=== PATIENT | male | born 1995 | race Two or more races ===

== ENCOUNTER 2020-01-24 15:30 | Emergency (ER) | payer OTHER ==
[~2020-01-24] VITALS: Ht 167.6 cm; Wt 78.0 kg
[2020-01-24 16:10] VITALS: BP 132/71
[2020-01-24 16:18] LABS: Eosinophils # (auto) 0.3 10 ^3/uL (0-0.8); Lymphocytes # (auto) 2.7 10 ^3/uL (0.4-5.4); Monocytes # (auto) 0.6 10 ^3/uL (0-1.3); Neutrophils # (auto) 5.1 10 ^3/uL (1.6-8.6); Nucleated Red Blood Cells % 0.1 %
[2020-01-24 16:20] LABS: Basophils # (auto) 0.1 10 ^3/uL (0-0.2); Basophils % (auto) 0.6 % (0.0-2.0); Eosinophils % (auto) 3.4 % (0.0-7.0); Hematocrit 43.7 % (41.0-53.0); Hemoglobin 14.7 g/dL (13.5-17.5); Lymphocytes % (auto) 31.2 % (10.0-50.0); Mean Corpuscular Hemoglobin 27.1 pg (28.0-32.0); Mean Corpuscular Hgb Conc. 33.6 g/dL (32.0-36.0); Mean Corpuscular Volume 80.6 fL (80.0-100.0); Monocytes % (auto) 7.1 % (0.0-12.0); Neutrophils % (auto) 57.7 % (37.0-80.0); Platelet Count (auto) 315 10^3/uL (140-450); Red Blood Cells 5.41 10^6/uL (4.5-5.90); White Blood Cell 8.8 10^3/uL (4.4-10.8)
[2020-01-24 16:30] LABS: Albumin 4.2 g/dL (3.4-5.0); Calcium 8.9 mg/dL (8.5-10.1); Potassium 3.5 mmol/L (3.5-5.1)
[2020-01-24 16:34] LABS: BUN/Creatinine Ratio 12.4; Bilirubin, Total 1.2 mg/dL (0.2-1.0); Total Protein 8.2 g/dL (6.4-8.2)
[2020-01-24 17:06] LABS: Urine WBC None Seen /hpf (0 - 3)
[2020-01-24 17:43] LABS: Alcohol, Urine < 3.0 mg/dL (0-5); Amphetamine Screen, Urine NEGATIVE (NEGATIVE); Barbiturate Scree,Urine NEGATIVE (NEGATIVE); Benzodiazephine Screen, Urine NEGATIVE (NEGATIVE); Cocaine Screen, Urine NEGATIVE (NEGATIVE); Opiate Scree,Urine NEGATIVE (NEGATIVE); Phencyclidine Screen, Urine NEGATIVE (NEGATIVE)
[2020-01-24 17:51] LABS: Cannabinoid Screen, Urine POSITIVE (NEGATIVE)
[2020-01-24 18:07] LABS: Urine Bacteria NONE SEEN /hpf (None Seen); Urine Blood Negative /uL (Negative); Urine Specific Gravity 1.008 (1.001-1.035)
== END 2020-01-24 17:35 | disposition home or self-care (01) ==
LOC: ER 15:30
DX: S29.011A Strain of muscle and tendon of front wall of thorax, initial encounter (principal); F17.210 Nicotine dependence, cigarettes, uncomplicated; X58.XXXA Exposure to other specified factors, initial encounter; Y93.89 Activity, other specified; Y92.89 Other specified places as the place of occurrence of the external cause; Y99.8 Other external cause status
CPT/HCPCS: 36415; 71045; 80053; 80307; 81001; 84484; 85025; 85379

== ENCOUNTER 2020-08-08 00:21 | Inpatient (IN) | payer OTHER ==
[~2020-08-08] VITALS: Ht 170.2 cm; Wt 93.0 kg
[2020-08-08] MEDS ORDERED: diphenhdrAMINE HCL 50 MG/1 ML VL IV ONE (00:45)
[2020-08-08] MEDS ORDERED: methylPREDNISolone SOD SUCC 125 MG/2 ML VL IV ONE (00:45)
[2020-08-08] MEDS ORDERED: SODIUM CHLORIDE 0.9% 1,000 ML IV ONE ×2 (00:45→03:15)
[2020-08-08] MEDS ORDERED: ONDANSETRON HCL 4 MG/2 ML VIAL IV ONE (01:00)
[2020-08-08 01:55] LABS: Basophils # (auto) 0 10 ^3/uL (0-0.2); Eosinophils # (auto) 0.2 10 ^3/uL (0-0.8); Eosinophils % (auto) 0.9 % (0.0-7.0); Hematocrit 51.6 % (41.0-53.0); Monocytes # (auto) 1.4 10 ^3/uL (0-1.3); Neutrophils # (auto) 14.1 10 ^3/uL (1.6-8.6)
[2020-08-08 01:57] LABS: Basophils % (auto) 0.1 % (0.0-2.0); Hemoglobin 17.4 g/dL (13.5-17.5); Lymphocytes # (auto) 4.9 10 ^3/uL (0.4-5.4); Lymphocytes % (auto) 23.6 % (10.0-50.0); Mean Corpuscular Hemoglobin 27.6 pg (28.0-32.0); Mean Corpuscular Hgb Conc. 33.7 g/dL (32.0-36.0); Monocytes % (auto) 6.9 % (0.0-12.0); Neutrophils % (auto) 68.5 % (37.0-80.0); Platelet Count (auto) 370 10^3/uL (140-450); Red Blood Cells 6.29 10^6/uL (4.5-5.90); Red Cell Distribution Width 16.4 % (11.8-14.3); White Blood Cell 20.6 10^3/uL (4.4-10.8)
[2020-08-08 01:58] LABS: Nucleated Red Blood Cells % 0.2 %
[2020-08-08 02:00] LABS: Alanine Aminotransferase 43 U/L (16-61); Albumin 3.9 g/dL (3.4-5.0); Anion Gap 12 (5-15); Aspartate Aminotransferase 21 U/L (15-37); Blood Alcohol < 3.0 mg/dL (0-5); Blood Urea Nitrogen 9 mg/dL (7-18); Calcium 8.5 mg/dL (8.5-10.1); Carbon Dioxide 25 mmol/L (21-32); Chloride 102 mmol/L (98-107); GFR African American 117 mL/min; GFR Non-African American 97 mL/min; Glucose 138 mg/dL (74-106); Sodium 139 mmol/L (136-145)
[2020-08-08 02:03] LABS: Alkaline Phosphatase 101 U/L (45-117); Bilirubin, Total 1.2 mg/dL (0.2-1.0); Potassium 2.8 mmol/L (3.5-5.1); Total Protein 7.3 g/dL (6.4-8.2)
[2020-08-08 02:10] LABS: INR 1.13 (0.9-1.15); Partial Thromboplastin Time 23.4 sec (23.0-31.2)
[2020-08-08] MEDS ORDERED: PROMETHAZINE HCL 25 MG/ML 1ML IV ONE (02:30)
[2020-08-08 02:51] LABS: Lactic Acid w/Reflex 3.6 mmol/L (0.4-2.0)
[2020-08-08] MEDS ORDERED: VANCOMYCIN 1GM/250ML 250 ML IV ONE (03:15)
[2020-08-08] MEDS ORDERED: PIPERACILLIN-TAZOB 3.375GM 100 ML IV ONE (03:15)
[2020-08-08] MEDS ORDERED: POTASSIUM CHL 20MEQ/100ML 100 ML IV ONE (03:15)
[2020-08-08] MEDS ORDERED: IOHEXOL 300 MG/ML 100ML BOTTLE IJ ONE (04:09)
[2020-08-08] MEDS ORDERED: HYDROcodone-ACET 5/325MG TAB PO PRN (07:00)
[2020-08-08] MEDS ORDERED: TEMAZEPAM 15 MG CAP PO PRN (07:00)
[2020-08-08] MEDS ORDERED: ACETAMINOPHEN 325 MG TAB PO PRN (07:00)
[2020-08-08] MEDS ORDERED: MORPHINE SULF INJ 2 MG/ML SYRINGE 1ML IV PRN (07:00)
[2020-08-08] MEDS ORDERED: ONDANSETRON HCL 4 MG/2 ML VIAL IV PRN (07:00)
[2020-08-08] MEDS ORDERED: NITROGLYCERIN 0.4 MG SL TAB SL PRN (07:00)
[2020-08-08] MEDS: SODIUM CHLORIDE 0.9% 1,000 ML IV SCH ×2 (07:51→17:31)
[2020-08-08] MEDS: cefTRIAXone 1GM/50ML D5W 50 ML IV SCH (09:47)
[2020-08-08] MEDS: FAMOTIDINE 20 MG TAB PO SCH ×2 (10:19→21:47)
[2020-08-08] MEDS: PANTOPRAZOLE 40 MG/10 ML VIAL INJ IV SCH (10:19)
[2020-08-08 11:20] LABS: Alcohol, Urine < 3.0 mg/dL (0-10); Amphetamine Screen, Urine NEGATIVE (NEGATIVE); Barbiturate Scree,Urine NEGATIVE (NEGATIVE); Benzodiazephine Screen, Urine NEGATIVE (NEGATIVE); Cannabinoid Screen, Urine POSITIVE (NEGATIVE); Cocaine Screen, Urine NEGATIVE (NEGATIVE); Opiate Scree,Urine NEGATIVE (NEGATIVE); Phencyclidine Screen, Urine NEGATIVE (NEGATIVE)
[2020-08-08] MEDS: metroNIDAZOLE 500MG/100ML 100 ML IV SCH ×2 (14:18→21:47)
[2020-08-08 17:50] VITALS: BP 110/55
[2020-08-08 22:00] VITALS: BP 115/49
[2020-08-09 05:00] VITALS: BP 99/49
[2020-08-09] MEDS: metroNIDAZOLE 500MG/100ML 100 ML IV SCH ×3 (05:33→21:42)
[2020-08-09] MEDS: SODIUM CHLORIDE 0.9% 1,000 ML IV SCH ×3 (05:33→23:00)
[2020-08-09 06:12] LABS: Basophils # (auto) 0 10 ^3/uL (0-0.2); Basophils % (auto) 0.1 % (0.0-2.0); Eosinophils # (auto) 0 10 ^3/uL (0-0.8); Eosinophils % (auto) 0.1 % (0.0-7.0); Hematocrit 37.7 % (41.0-53.0); Hemoglobin 12.2 g/dL (13.5-17.5); Lymphocytes # (auto) 1.4 10 ^3/uL (0.4-5.4); Lymphocytes % (auto) 13.2 % (10.0-50.0); Mean Corpuscular Hgb Conc. 32.4 g/dL (32.0-36.0); Mean Corpuscular Volume 83.4 fL (80.0-100.0); Monocytes # (auto) 0.7 10 ^3/uL (0-1.3); Monocytes % (auto) 6.2 % (0.0-12.0); Neutrophils # (auto) 8.5 10 ^3/uL (1.6-8.6); Neutrophils % (auto) 80.4 % (37.0-80.0); Nucleated Red Blood Cells % 0.2 %; Platelet Count (auto) 235 10^3/uL (140-450); Red Blood Cells 4.52 10^6/uL (4.5-5.90); Red Cell Distribution Width 16.6 % (11.8-14.3); White Blood Cell 10.6 10^3/uL (4.4-10.8)
[2020-08-09 06:31] LABS: Potassium 3.5 mmol/L (3.5-5.1)
[2020-08-09 06:44] LABS: BUN/Creatinine Ratio 11.4; Bilirubin, Total 0.8 mg/dL (0.2-1.0); Calcium 8.5 mg/dL (8.5-10.1); Total Protein 5.9 g/dL (6.4-8.2)
[2020-08-09] MEDS: FAMOTIDINE 20 MG TAB PO SCH ×2 (08:52→21:42)
[2020-08-09] MEDS: cefTRIAXone 1GM/50ML D5W 50 ML IV SCH (08:52)
[2020-08-09] MEDS: PANTOPRAZOLE 40 MG/10 ML VIAL INJ IV SCH (08:52)
[2020-08-09 09:00] VITALS: BP 107/49
[2020-08-09] MEDS: diphenhdrAMINE HCL 25 MG CAP PO PRN (10:38)
[2020-08-09 13:00] VITALS: BP 117/71
[2020-08-09] MEDS ORDERED: METOCLOPRAMIDE HCL 5MG/ml INJ 2ml VIAL IV ONE (14:15)
[2020-08-09] MEDS ORDERED: SODIUM CHLORIDE LOCK 10 ML ONE (15:48)
[2020-08-09] MEDS ORDERED: LIDOCAINE VISCOUS 2% 15ML UD ONE (15:48)
[2020-08-09] MEDS: fentaNYL CITRATE 100 MCG/2 ML VL ONE ×2 (15:51→15:53)
[2020-08-09] MEDS: MIDAZOLAM HCL 5 MG/ML-1ML VIAL ONE ×3 (15:51→15:56)
[2020-08-09] MEDS: diphenhdrAMINE HCL 50 MG/1 ML VL ONE ×2 (15:51→15:53)
[2020-08-09 16:50] VITALS: BP 108/57
[2020-08-09] MEDS: SUCRALFATE 1 GM/10 ML ORAL SUSP PO SCH ×2 (16:55→21:42)
[2020-08-09 22:10] VITALS: BP 105/62
[2020-08-10] MEDS: SODIUM CHLORIDE 0.9% 1,000 ML IV SCH (03:45)
[2020-08-10 05:00] VITALS: BP 121/66
[2020-08-10 05:54] LABS: Hematocrit 37.7 % (41.0-53.0); Hemoglobin 12.2 g/dL (13.5-17.5)
[2020-08-10] MEDS: metroNIDAZOLE 500MG/100ML 100 ML IV SCH ×2 (05:55→14:00)
[2020-08-10 06:13] LABS: Potassium 3.5 mmol/L (3.5-5.1)
[2020-08-10 06:17] LABS: BUN/Creatinine Ratio 10.7; Calcium 7.9 mg/dL (8.5-10.1)
[2020-08-10] MEDS: SUCRALFATE 1 GM/10 ML ORAL SUSP PO SCH ×2 (06:20→11:48)
[2020-08-10] MEDS: cefTRIAXone 1GM/50ML D5W 50 ML IV SCH (08:37)
[2020-08-10] MEDS: diphenhdrAMINE HCL 25 MG CAP PO PRN (08:37)
[2020-08-10 08:46] VITALS: BP 129/72
[2020-08-10] MEDS: PANTOPRAZOLE 40 MG/10 ML VIAL INJ IV SCH (09:32)
[2020-08-10] MEDS: FAMOTIDINE 20 MG TAB PO SCH (09:32)
[2020-08-10 13:00] VITALS: BP 151/69
[2020-08-10] MEDS ORDERED: SUCR1TAB22 PO (14:30)
[2020-08-10] MEDS ORDERED: PANT40TA2 PO (14:30)
[2020-08-10] MEDS ORDERED: METR500T PO (14:30)
[2020-08-10] MEDS ORDERED: LEVO500T21 PO (14:30)
== END 2020-08-10 16:15 | disposition home or self-care (01) | DRG 249 ==
LOC: EDBD 00:21 → ER 00:24 → TELE 00:25 → TELE-WESTW 17:51
PROVIDERS: ADMIT Nurse Practitioner; ATTEND Internal Medicine
PROC: 0DB88ZX Excision of Small Intestine, Via Natural or Artificial Opening Endoscopic, Diagnostic (ICD-10-PCS; 2020-08-09)
PROC: 0DB68ZX Excision of Stomach, Via Natural or Artificial Opening Endoscopic, Diagnostic (ICD-10-PCS; principal; 2020-08-09 15:50)
DX: A09 Infectious gastroenteritis and colitis, unspecified (principal); D71 Functional disorders of polymorphonuclear neutrophils; R65.10 Systemic inflammatory response syndrome (SIRS) of non-infectious origin without acute organ dysfunction; E87.6 Hypokalemia; F12.90 Cannabis use, unspecified, uncomplicated; K31.9 Disease of stomach and duodenum, unspecified; K44.9 Diaphragmatic hernia without obstruction or gangrene; T78.1XXA Other adverse food reactions, not elsewhere classified, initial encounter; K22.11 Ulcer of esophagus with bleeding; K29.71 Gastritis, unspecified, with bleeding; K29.81 Duodenitis with bleeding; K26.4 Chronic or unspecified duodenal ulcer with hemorrhage
CPT/HCPCS: 36415; 43239; 71045; 71275; 74176; 80048; 80053; 80307; 80320; 82150; 83605; 83690; 83735; 84132; 84484; 85014; 85018; 85025; 85379; 85610; 85730; 87040; 87045; 87086; 87427; 87493; 93005; 96361; 96365; 96375; C9113; G0378; J0696; J2250; J2405; J2543; J3480; J3490